=== PATIENT | female | born 1990 | race Caucasian/White ===

== ENCOUNTER 2022-06-06 13:43 | Emergency (ER) | payer MEDICAID, OTHER ==
[~2022-06-06] VITALS: Ht 182.9 cm; Wt 63.6 kg
[2022-06-06 18:40] LABS: BASO % 0.2 % (0.0-1.0); EOS % 0.1 % (0.0-3.0); HEMATOCRIT 39.1 % (36.0-47.0); LYMPH # 1.3 10^3/uL (1.5-5.0); LYMPH % 15.1 % (24.0-44.0); MEAN CORPUSCULAR HEMOGLOBIN 32.6 pg (27.0-33.0); MEAN CORPUSCULAR HGB CONC 33.2 g/dl (32.0-36.5); MONO # 0.8 10^3/uL (0.0-0.8); MONO % 8.9 % (2.0-8.0); NEUTROPHILS # 6.7 10^3/uL (1.5-8.5); NEUTROPHILS % 75.2 % (36.0-66.0); PLATELET COUNT, AUTOMATED 187 10^3/uL (150-450); RED BLOOD COUNT 3.99 10^6/uL (4.00-5.40); WHITE BLOOD COUNT 8.9 10^3/uL (4.0-10.0)
[2022-06-06] MEDS ORDERED: KETOROLAC 30 MG/ML 1ML VIAL IM ONE (19:15)
[2022-06-06 19:23] LABS: ALBUMIN 4.1 GM/DL (3.2-5.2); BILIRUBIN,DIRECT 0.3 MG/DL (0.0-0.2); TOTAL PROTEIN 7.5 GM/DL (6.4-8.2)
[2022-06-06 19:28] VITALS: BP 127/78
[2022-06-06] MEDS ORDERED: OXYCODONE/APAP 5MG/325MG(HOME DOSE PACK) PO ONE (19:35)
== END 2022-06-06 21:30 | disposition home or self-care (01) ==
LOC: M ED 13:43
DX: S83.92XA Sprain of unspecified site of left knee, initial encounter (principal); S80.822A Blister (nonthermal), left lower leg, initial encounter; R22.42 Localized swelling, mass and lump, left lower limb; S80.12XA Contusion of left lower leg, initial encounter; S22.41XA Multiple fractures of ribs, right side, initial encounter for closed fracture; V86.15XA Passenger of 3- or 4- wheeled all-terrain vehicle (ATV) injured in traffic accident, initial encounter
CPT/HCPCS: 36415; 71100; 73564; 73590; 80047; 80076; 83690; 84702; 85025; 93971; 96372; 99284; J1885

== ENCOUNTER → 2022-06-07 | Outpatient (CLI) | payer OTHER | LOC: M SOG 16:09 | PROVIDERS: ATTEND Orthopaedic Surgery | DX: M79.672 Pain in left foot (principal) ==

== ENCOUNTER → 2022-06-30 | Outpatient (CLI) | payer OTHER | LOC: M SOG 10:00 | PROVIDERS: ATTEND Student in an Organized Health Care Education/Training Program | DX: M25.572 Pain in left ankle and joints of left foot (principal); M79.605 Pain in left leg ==

== ENCOUNTER → 2022-07-13 | Outpatient (CLI) | payer OTHER | LOC: M PLAIMG 07:05 | PROVIDERS: ATTEND Student in an Organized Health Care Education/Training Program | DX: S83.511A Sprain of anterior cruciate ligament of right knee, initial encounter (principal); S83.522A Sprain of posterior cruciate ligament of left knee, initial encounter; W18.30XA Fall on same level, unspecified, initial encounter; Y92.009 Unspecified place in unspecified non-institutional (private) residence as the place of occurrence of the external cause ==

== ENCOUNTER 2023-05-13 20:11 | Emergency (ER) | payer OTHER ==
[2023-05-13] MEDS ORDERED: MIDAZOLAM INJ 2MG/2ML VIAL IM ONE (20:20)
[2023-05-13] MEDS ORDERED: diphenhydrAMINE 50MG/ML VIAL IM ONE (20:20)
[2023-05-13] MEDS ORDERED: HALOPERIDOL 5MG/ML 1ML VIAL IM ONE (20:20)
[2023-05-13 20:52] LABS: HEMATOCRIT 51.1 % (36.0-47.0); HEMOGLOBIN 16.8 g/dl (12.0-15.5); MEAN CORPUSCULAR HEMOGLOBIN 31.9 pg (27.0-33.0); MEAN CORPUSCULAR HGB CONC 32.9 g/dl (32.0-36.5); PLATELET COUNT, AUTOMATED 242 10^3/uL (150-450); RED BLOOD COUNT 5.27 10^6/uL (4.00-5.40); WHITE BLOOD COUNT 9.4 10^3/uL (4.0-10.0)
[2023-05-13 21:16] LABS: ETHYL ALCOHOL (ETHANOL) 0.186 % (0.000-0.010)
[2023-05-13 21:17] LABS: ACETAMINOPHEN LEVEL < 2.0 UG/ML (10.0-20.0)
[2023-05-13 21:18] LABS: ALBUMIN 4.4 G/DL (3.2-5.2); ALKALINE PHOSPHATASE 77 U/L (46-116); ALT/SGPT 22 U/L (7.0-40); AST/SGOT 26 U/L (<34); BILIRUBIN,DIRECT 0.2 MG/DL (<0.4); BILIRUBIN,TOTAL 0.5 MG/DL (0.3-1.2); BLOOD UREA NITROGEN 11 MG/DL (9-23); CALCIUM LEVEL 9.7 MG/DL (8.5-10.1); CARBON DIOXIDE LEVEL 22 MMOL/L (20-31); CHLORIDE LEVEL 108 MMOL/L (98-107); CREATININE FOR GFR 0.91 MG/DL (0.55-1.30); GLOMERULAR FILTRATION RATE > 60.0 (>60); GLUCOSE, FASTING 129 MG/DL (60-100); POTASSIUM SERUM 4.1 MMOL/L (3.5-5.1); SALICYLATE LEVEL < 3.0 MG/DL (<30); SODIUM LEVEL 146 MMOL/L (136-145); TOTAL PROTEIN 7.5 G/DL (5.7-8.2)
[2023-05-13 21:20] LABS: THYROID STIMULATING HORMONE 4.654 uIU/ML (0.55-4.78)
[2023-05-13 21:30] LABS: HCG, SERUM QUALITATIVE NEGATIVE (NEGATIVE)
[2023-05-13 21:32] LABS: CPK CREATINE PHOSPHOKINASE 242 U/L (34-145)
[2023-05-13 22:14] LABS: AMPHETAMINES LEVEL URINE NEGATIVE (NEGATIVE); BARBITURATES URINE NEGATIVE (NEGATIVE); COCAINE METABOLITE URINE NEGATIVE (NEGATIVE); METHADONE URINE NEGATIVE (NEGATIVE); OPIATES URINE NEGATIVE (NEGATIVE); PHENCYCLIDINE URINE NEGATIVE (NEGATIVE)
[2023-05-13 22:28] LABS: BENZODIAZEPINES URINE POSITIVE (NEGATIVE); CANNABINOIDS URINE POSITIVE (NEGATIVE)
[2023-05-14] MEDS ORDERED: HOME MED LIST COMPLETE! XX SCH (01:20)
[2023-05-14 09:47] VITALS: BP 114/80; TEMP 98.4; O2SAT 100
== END 2023-05-14 09:56 | disposition home or self-care (01) ==
LOC: M ED 20:11
DX: F10.129 Alcohol abuse with intoxication, unspecified (principal); F43.0 Acute stress reaction
CPT/HCPCS: 80048; 80076; 80143; 80307; 82077; 82550; 84443; 84703; 85027; 87635; 96372; 99285; J1200; J1630; J2250